=== PATIENT | male | born 1970 | race Caucasian/White ===

== ENCOUNTER 2019-02-06 16:21 | Emergency (ER) | payer SELFPAY ==
[~2019-02-06] VITALS: Ht 172.7 cm; Wt 100.0 kg
[2019-02-06 16:33] VITALS: Ht 172.7 cm; Wt 100.0 kg
[2019-02-06] MEDS ORDERED: PHENERGAN DM SYR5 ML PO (18:55)
[2019-02-06] MEDS ORDERED: VIBRAMYCIN 100100 MG PO (18:55)
[2019-02-06 19:49] VITALS: BP 162/110
== END 2019-02-06 19:51 | disposition home or self-care (01) ==
LOC: D.ER 16:21
DX: J06.9 Acute upper respiratory infection, unspecified (principal); Z86.73 Personal history of transient ischemic attack (TIA), and cerebral infarction without residual deficits; I10 Essential (primary) hypertension; Z87.891 Personal history of nicotine dependence; J40 Bronchitis, not specified as acute or chronic